=== PATIENT | female | born 1940 | race Caucasian/White ===

== ENCOUNTER 2017-09-07 12:19 | Emergency (ER) | payer MEDICARE, BC ==
[~2017-09-07] VITALS: Ht 152.4 cm; Wt 62.6 kg
[2017-09-07] MEDS ORDERED: ASPI-618 PO (12:46)
[2017-09-07] MEDS ORDERED: RANI150T8 PO (12:46)
[2017-09-07] MEDS ORDERED: ATEN25TA PO (12:46)
[2017-09-07] MEDS ORDERED: LORA10TA7 PO (12:46)
[2017-09-07] MEDS ORDERED: HYDR25TA4 PO (12:46)
[2017-09-07] MEDS ORDERED: RAMI10CA PO (12:46)
[2017-09-07] MEDS ORDERED: METH10TA7 PO (12:46)
[2017-09-07] MEDS ORDERED: IRON PILLS PO (12:46)
[2017-09-07] MEDS ORDERED: ATOR20TA PO (12:46)
[2017-09-07] MEDS ORDERED: CHOL200078 PO (12:46)
--- NOTE | 2017-09-07 12:57 | NUR ---
Patient in room 4B, reports constipated, recently took miralax, afraid to sit down because she might make a mess, reports her backside hurts.
--- NOTE | 2017-09-07 13:27 | NUR ---
Female front office associate accompanied female patient for (DR PLATT). DR PLATT DISIMPACTED PT. PT TOLORATED WELL.
== END 2017-09-07 13:36 | disposition home or self-care (01) ==
LOC: ER 12:19
DX: K56.41 Fecal impaction (principal); I10 Essential (primary) hypertension; E78.5 Hyperlipidemia, unspecified; K21.9 Gastro-esophageal reflux disease without esophagitis; Z79.82 Long term (current) use of aspirin
CPT/HCPCS: A4663

== ENCOUNTER 2018-12-12 17:30 | Emergency (ER) | payer MEDICARE, BC ==
[~2018-12-12] VITALS: Ht 152.4 cm; Wt 59.9 kg
[~2018-12-12 17:30] MED LIST: ASPI-618 PO; ATEN25TA PO; ATOR20TA PO; CHOL200078 PO; HYDR25TA4 PO; IRON PILLS PO; LORA10TA7 PO; METH10TA7 PO; RAMI10CA69 PO; RANI150T8 PO
[2018-12-12] MEDS ORDERED: ATEN25TA PO (18:01)
[2018-12-12] MEDS ORDERED: CHOL200074 PO (18:01)
[2018-12-12] MEDS ORDERED: HYDR25TA4 PO (18:01)
[2018-12-12] MEDS ORDERED: ATOR20TA PO (18:01)
[2018-12-12] MEDS ORDERED: LORA10TA7 PO (18:01)
[2018-12-12] MEDS ORDERED: METH5TAB6 PO (18:01)
[2018-12-12] MEDS ORDERED: RANI150C4 PO (18:01)
[2018-12-12] MEDS ORDERED: RAMI10CA69 PO (18:01)
--- NOTE | 2018-12-12 18:37 | NUR ---
Dr Velasquez at the bedside for MSE.
[2018-12-12] MEDS ORDERED: BENZONATATE 100 MG CAPSULE ONE (18:41)
[2018-12-12] MEDS ORDERED: BENZONATATE 100 MG CAPSULE PO ONE (18:45)
[2018-12-12 18:59] VITALS: BP 114/73
--- NOTE | 2018-12-12 19:00 | NUR ---
Patient discharged to home in stable conditon. Written and verbal after care instructions given. Patient verbalizes understanding of instructions.
== END 2018-12-12 19:04 | disposition home or self-care (01) ==
LOC: ER 17:31
DX: J20.9 Acute bronchitis, unspecified (principal); I10 Essential (primary) hypertension; E78.5 Hyperlipidemia, unspecified; K21.9 Gastro-esophageal reflux disease without esophagitis; Z79.82 Long term (current) use of aspirin; Z79.899 Other long term (current) drug therapy
CPT/HCPCS: A4663